=== PATIENT | female | born 1975 | race Caucasian/White ===

== ENCOUNTER 2020-08-20 15:46 | Emergency (ER) | payer OTHER, SELFPAY ==
[2020-08-20 18:20] VITALS: BP 152/98; PULSE 94; RESP 18; O2SAT 99; BMI 36.8
--- NOTE | 2020-08-20 18:26 | ED.URI ---
HPI - URI/Sore Throat General Chief Complaint: Upper Respiratory Symptoms Stated Complaint: Covid symptoms Time Seen by Provider: 08/20/20 16:55 Source: patient Mode of arrival: ambulatory Limitations: no limitations History of Present Illness HPI Narrative: Runny nose/congestion/body aches for the past 1 day. States her nephew was staying with her who got tested today and tested positive for COVID-19. She is here for COVID-19 testing. Denies any chest pain or shortness of breath. MD elicited complaint: rhinorrhea and nasal congestion Severity: mild Able to tolerate fluids by mouth: Yes Associated symptoms: denies other symptoms Treatments prior to arrival: none Related Data Allergies Allergy/AdvReac Type Severity Reaction Status Date / Time ibuprofen [IBUPROFEN] Allergy Intermediate STOMACH Unverified 05/03/20 15:25 BURNING meperidine [Demerol] Allergy Unknown Verified 12/27/12 00:00 From Demerol Allergy Severe HEART Uncoded 05/03/20 15:25 PALPITATIONS, BODY NUMBNESS Review of Systems Review of Systems: Constitutional: No Weight loss, No Fever, No Chills, No Night Sweats, No Fatigue, No Malaise ENT/Mouth: No Hearing loss, No Ear Pain, No Nasal Congestion, No Sinus Pain, No Hoarseness, No sore throat, No Rhinorrhea, No Swallowing Difficulty Eyes: No Eye Pain, No Swelling, No Redness, No Foreign Body, No Discharge, No Vision Changes Cardiovascular: No Chest Pain, No SOB, No Dyspnea on Exertion, No Orthopnea, No Edema, No Palpitations Respiratory: No Cough, No Sputum, No Wheezing, No Smoke Exposure, No Dyspnea Gastrointestinal: No Nausea, No Vomiting, No Diarrhea, No Constipation, No abdominal Pain, No Hematochezia, No Melena Genitourinary: No Dysuria, No Urinary Frequency, No Hematuria, No Urinary Incontinence, No Urgency, No Flank Pain Musculoskeletal: No joint pain, No Myalgias, No Joint Swelling Skin: No Skin Lesions, No rash Neuro: No Weakness, No Numbness, No Paresthesias, No Loss of Consciousness, No Dizziness, No Headache Psych: No Social Issues Heme/Lymph: No Bruising, No Bleeding,No Lymphadenopathy Endocrine: No Polyuria, No Polydipsia, No Temperature Intolerance Yes all other systems are reviewed and are negative [facility] Past Medical History Medical History (Updated 08/20/20 @ 18:28 by Matt Jiménez NP) Anxiety Asthma GERD (gastroesophageal reflux disease) Hypertension Surgical History (Updated 08/20/20 @ 18:23 by Juan Carlos Pelaez) Gastric bypass status for obesity History of hysterectomy Physical Exam Vital Signs: Vital Signs: Last Vital Signs Pulse 94 08/20/20 18:20 Resp 18 08/20/20 18:20 BP 152/98 H 08/20/20 18:20 Pulse Ox 99 08/20/20 18:20 Body Mass Index 36.8 Reviewed Const: General: cooperative and healthy appearing; No acute distress or intoxicated appearing Nutritional Appearance: average body habitus Orientation/consciousness: patient oriented x3 HENMT: Head: Yes normal to inspection Ears: hearing grossly normal bilaterally Eyes: General: appearance normal, both eyes and all related structures Visual Hickman: normal visual hickman by confrontation Neck: Neck: Yes normal visual inspection, No positive Brudzinski's sign, No positive Kernig's sign and No tender Thyroid: Thyroid normal Chest: Chest palpation & inspection: normal inspection of the chest Resp: Effort & Inspection: normal respiratory effort Auscultation: clear to auscultation bilaterally Cardio: Jugular venous distension: no JVD Rhythm: regular rhythm Heart sounds: S1 normal heart sound present and S2 normal heart sound present GI: Inspection: Yes normal to inspection Percussion: Yes normal to percussion Auscultation: normal bowel sounds : General: Yes no CVA tenderness Back/Spine/Pelvis: Back: no CVA tenderness Skin: General skin exam: no rashes or lesions noted Neuro: General: patient oriented x3 Extrem: General: Yes normal to inspection Course Course Course Narrative: Well nontoxic appearing. 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 Given your exposure we have done a COVID-19 test. Based on your symptoms and history we have sent a COVID-19. Although your RESULT IS PENDING at this time. RESULTS should return within 72 hours. At this time you will be contacted with either NEGATIVE OR POSITIVE results. -Please wait until we contact you for your results. At this time you will be okay for discharge. Please plan for self quarantine for up to 14 days. Do not expose yourself to others. Please continue to follow cold instructions and wash your hands frequently. You may take Tylenol as directed on the bottle for pain or fever. Patient seen in the emergency department and should be excused from work until negative test results AND until 72 hours without any symptoms AND at least 10 days have passed since symptoms first appeared or since last exposure to COVID-19 positive patient CDC Guidelines for home isolation: - Stay away from others - WEAR A MASK if you are sick AND STAY HOME - Cover your mouth and nose with a tissue when you cough or sneeze. Dispose of tissues in a lined trash can and wash your hands immediately with soap and water for at least 20 seconds. If soap and water are not available, clean hands with alcohol-based hand net mvc developer that contains at least 60% alcohol. - Clean your hands often with soap and water for at least 20 seconds - Avoid touching your eyes, nose and mouth with unwashed hands - Do not share dishes, drinking glasses, cups, eating utensils, towels, or bedding with other people in your home. After using these items, wash them thoroughly with soap and water or put in the public safety director. - Clean high-touch surfaces in your isolation area ( sick room and bathroom) every day; let a caregiver clean and disinfect high-touch surfaces in other areas of the home. Clean the area or item with soap and water or another detergent if it is dirty. Then, use a household disinfectant. - Limit contact with pets and animals: If you must care for a pet, wash your hands before and after interacting with them Referrals: Physician,Unknown [Primary Care Provider] - 2 weeks
[2020-08-20 19:45] LABS: COVID-19 Test Positive (Negative)
== END 2020-08-20 18:57 | disposition home or self-care (01) ==
LOC: HO.ED 18:58
PROVIDERS: Emergency Provider Emergency Medicine
DX: U07.1 COVID-19 (principal); I10 Essential (primary) hypertension; J45.909 Unspecified asthma, uncomplicated
CPT/HCPCS: 36415; 87635; 99283

== ENCOUNTER 2020-11-26 11:00 | Outpatient (REF) | payer OTHER, SELFPAY | END 2020-11-26 11:01 | disposition home or self-care (01) | LOC: HO.LAB 11:00 | PROVIDERS: Visit Provider Internal Medicine | DX: Z20.822 Contact with and (suspected) exposure to COVID-19 (principal) | CPT/HCPCS: C9803; U0003; U0005 ==

== ENCOUNTER 2021-04-16 17:08 | Emergency (ER) | payer OTHER, SELFPAY ==
[2021-04-16] VITALS (7 sets, daily range): BP systolic 97–144; BP diastolic 66–85; PULSE 72–100; RESP 15–16; TEMP 36.4–36.6; O2SAT 95–100; BMI 33.3
--- NOTE | 2021-04-16 18:50 | ED.NAVMDI ---
HPI - Nausea/Vomiting/Diarrhea General Chief complaint: Nausea/Vomiting/Diarrhea Stated complaint: Food poisoning Time Seen by Provider: 04/16/21 18:49 Source: patient Mode of arrival: ambulatory Limitations: no limitations History of Present Illness HPI Narrative: Patient just visited [place] was in [place] for few days for last 5 days complaining of nausea diarrhea few vomitings vomiting getting better but still having diarrhea Related Data Previous Rx's Medication Instructions Recorded ciprofloxacin HCl 500 mg tablet 500 mg PO BID #14 tab 04/16/21 (Cipro) metronidazole 500 mg tablet 500 mg PO TID #20 tab 04/16/21 (Flagyl) ondansetron 4 mg disintegrating 4 mg PO Q6-8H PRN #5 tab 04/16/21 tablet Allergies Allergy/AdvReac Type Severity Reaction Status Date / Time ibuprofen [IBUPROFEN] Allergy Intermediate STOMACH Unverified 05/03/20 15:25 BURNING meperidine [Demerol] Allergy Unknown Verified 12/27/12 00:00 From Demerol Allergy Severe HEART Uncoded 05/03/20 15:25 PALPITATIONS, BODY NUMBNESS PMFSH Past Medical History Medical History (Updated 04/17/21 @ 00:02 by Ed Bonner) Anxiety Asthma GERD (gastroesophageal reflux disease) Hypertension Surgical History (Updated 08/20/20 @ 18:23 by Juan Carlos Pelaez) Gastric bypass status for obesity History of hysterectomy Social History Social History Advance Directives: No Physical Exam Vital Signs: Vital Signs: Last Vital Signs Temp 97.6 F 04/16/21 20:21 Pulse 73 04/16/21 21:56 Resp 16 04/16/21 21:56 BP 107/70 04/16/21 21:56 Pulse Ox 98 04/16/21 21:56 Body Mass Index 33.3 MDM - Nausea/Vomiting/Diarrhea Lab Data Result diagrams: 04/16/21 19:56 04/16/21 19:56 Labs: Lab Results 04/16/21 04/16/21 Range/Units 19:56 19:56 WBC 6.8 (4.8-10.8) X10*3/uL RBC 4.25 (4.20-5.50) X10*6/uL Hgb 12.7 (12.0-16.0) g/dl Hct 36.6 L (37-47) % MCV 86.1 (80-98) fL MCH 29.9 (27.0-33.0) pg MCHC 34.7 (31.0-35.0) g/dl RDW 11.9 (11.0-16.0) % Plt Count 251 (160-400) X10*3/uL MPV 10.2 (9.4-12.3) fL Immature Gran % (Auto) 0.3 (0.0-0.4) % Neut % (Auto) 50.3 (45-73) % Lymph % (Auto) 38.5 (20-40) % Hamilton % (Auto) 8.7 (2-11) % Eos % (Auto) 1.6 (0-4) % Baso % (Auto) 0.6 (0-2) % Lymph # (Auto) 2.6 (1.2-4.9) X10*3/uL Hamilton # (Auto) 0.6 (0.1-1.2) X10*3/uL Eos # (Auto) 0.1 (0.0-0.4) X10*3/uL Baso # (Auto) 0.0 (0.0-0.2) X10*3/uL Abs Immat Gran (auto) 0.02 (0.00-0.03) X10*3/uL Absolute Neuts (auto) 3.4 (2.0-8.3) X10*3/uL Absolute Nucleated RBC 0.000 (0.0-0.012) X10*3/uL Nucleated RBC % (auto) 0.0 (0.0-0.2) /100WBC Smear Tech's Comments VERIFIED Sodium 140 (135-145) mmol/L Potassium 3.5 (3.3-5.1) mmol/L Chloride 104 (96-108) mmol/L Carbon Dioxide 27 (22-29) mmol/L Anion Gap 13 (12-20) BUN 9 (9-16) mg/dL Creatinine 0.66 (0.5-1.4) mg/dL Estim Creat Clear Calc 135.7 Estimated GFR > 60 Random Glucose 78 (60-115) mg/dL Calcium 9.1 (8.4-10.2) mg/dL Discharge Plan Discharge Clinical Impression: Food poisoning Patient Disposition: Home, Self-Care Instructions: Acute Diarrhea (ED), Food Poisoning (ED) Additional Instructions: Drink plenty of fluid take antibiotic as advised follow-up PCP if not better Prescriptions: New ciprofloxacin HCl [Cipro] 500 mg tablet 500 mg PO BID Qty: 14 RF: 0 metronidazole [Flagyl] 500 mg tablet 500 mg PO TID Qty: 20 RF: 0 ondansetron 4 mg tablet,disintegrating 4 mg PO Q6-8H PRN (Reason: nausea and vomiting) Qty: 5 RF: 0 Interventions: ED Discharge Assessment Last Done: 04/16/21 21:39 Discharge Date/Time: 04/16/21 21:56
--- NOTE | 2021-04-16 19:28 | PC.NURSE ---
pt is a difficult stick. pt has been sick since thrusday
[2021-04-16] MEDS: 0.9 % Sodium Chloride 1,000 ML 999 ML IVCONT (19:58)
[2021-04-16 20:19] LABS: Basophils Percent Auto 0.6 % (0-2); Eosinophils Absolute Auto 0.1 X10*3/uL (0.0-0.4); Eosinophils Percent Auto 1.6 % (0-4); Hematocrit 36.6 % (37-47); Hemoglobin 12.7 g/dl (12.0-16.0); Imm Gran Abs Auto 0.02 X10*3/uL (0.00-0.03); Imm Gran Pct Auto 0.3 % (0.0-0.4); Lymphocytes Absolute Auto 2.6 X10*3/uL (1.2-4.9); Lymphocytes Percent Auto 38.5 % (20-40); MANUAL DIFF FLAG SCAN; Mean Corpuscular HGB Conc 34.7 g/dl (31.0-35.0); Mean Corpuscular Hemoglobin 29.9 pg (27.0-33.0); Mean Corpuscular Volume 86.1 fL (80-98); Mean Platelet Volume 10.2 fL (9.4-12.3); Monocytes Absolute Auto 0.6 X10*3/uL (0.1-1.2); Monocytes Percent Auto 8.7 % (2-11); Neutrophils Absolute Auto 3.4 X10*3/uL (2.0-8.3); Neutrophils Percent Auto 50.3 % (45-73); Platelet Count 251 X10*3/uL (160-400); Red Blood Count 4.25 X10*6/uL (4.20-5.50); Red Cell Distribution Width 11.9 % (11.0-16.0); SCAN SMEAR FLAG 1; White Blood Count 6.8 X10*3/uL (4.8-10.8)
[2021-04-16 20:23] LABS: Anion Gap 13 (12-20); Blood Urea Nitrogen 9 mg/dL (9-16); Calcium 9.1 mg/dL (8.4-10.2); Carbon Dioxide 27 mmol/L (22-29); Chloride 104 mmol/L (96-108); Creatinine Clr Calc Pharmacy 135.7; Estimated Glomerular Filt Rate > 60; Glucose Random 78 mg/dL (60-115); Potassium 3.5 mmol/L (3.3-5.1); SLIDE REVIEW VERIFIED; Sodium 140 mmol/L (135-145)
[2021-04-16] MEDS: ondansetron HCL 4 MG/2 ML VIAL IVPUSH (21:08)
[2021-04-16] MEDS: levoFLOXacin 500 MG TABLET PO (21:08)
[2021-04-16] MEDS: Morphine Sulfate 4 MG/ML CARTRIDGE IVPUSH (21:08)
[2021-04-16] MEDS: metroNIDAZOLE 500 MG TABLET PO (21:08)
== END 2021-04-16 21:56 | disposition home or self-care (01) ==
PROVIDERS: Emergency Provider Internal Medicine; PCP Internal Medicine
DX: A05.9 Bacterial foodborne intoxication, unspecified (principal); R19.7 Diarrhea, unspecified; I10 Essential (primary) hypertension; Z98.84 Bariatric surgery status
CPT/HCPCS: 36415; 80048; 85025; 96361; 96374; 96375; 99284; J2270; J2405

== ENCOUNTER 2021-04-24 10:12 | Outpatient (REF) | payer OTHER, SELFPAY | END 2021-04-24 10:13 | disposition home or self-care (01) | LOC: HO.LAB 10:12 | PROVIDERS: PCP Internal Medicine; Visit Provider Internal Medicine | DX: Z20.822 Contact with and (suspected) exposure to COVID-19 (principal) | CPT/HCPCS: C9803; U0003; U0005 ==

== ENCOUNTER 2021-05-16 18:55 | Emergency (ER) | payer OTHER, SELFPAY ==
--- NOTE | ~2021-05-16 | XR_ITS ---
EXAMINATION: XR CHEST CLINICAL INFORMATION: Cough COMPARISON: Chest x-ray 03/14/2020 TECHNIQUE: 2 views of the chest were obtained. FINDINGS: Lungs are clear. Opacity in the medial left lung apex corresponds to osteophytosis at the left first costosternal junction. No focal consolidation or mass. Normal pulmonary vascularity. No pleural effusion or pneumothorax. Normal heart size. Mild degenerative changes of the thoracic spine. XR/XR chest 2V IMPRESSION: No acute pulmonary disease.
[2021-05-16 19:18] VITALS: PULSE 98; RESP 18; TEMP 37.1; O2SAT 99; BMI 36.4
[2021-05-16 19:44] LABS: COVID-19 Test Negative (Negative)
--- NOTE | 2021-05-16 21:03 | ED.GENADULT ---
HPI - General Adult General Chief complaint: Upper Respiratory Symptoms Stated complaint: FLU POLOS SON COVID + Time Seen by Provider: 05/16/21 21:03 Source: patient Mode of arrival: ambulatory Limitations: no limitations History of Present Illness HPI narrative: 45 years old female is here today for complaining of upper respiratory symptoms. Patient also reports of headache, earache, or sore throat. Denies any swallowing difficulties no SOB with or without exertion, no syncope or presyncope. Denies any chest pain or pressure. Patient had COVID-19 vaccine. Patient was told that her son and her daughter in a boat tested positive for COVID-19. Onset (ago): day(s) Location: head Radiation: non-radiation Severity: mild Related Data Previous Rx's Medication Instructions Recorded ciprofloxacin HCl 500 mg tablet 500 mg PO BID #14 tab 04/16/21 (Cipro) metronidazole 500 mg tablet 500 mg PO TID #20 tab 04/16/21 (Flagyl) ondansetron 4 mg disintegrating 4 mg PO Q6-8H PRN #5 tab 04/16/21 tablet benzonatate 100 mg capsule 100 mg PO TID PRN #30 cap 05/16/21 (Tessalon Perles) fluticasone propionate 50 1 spray INTRANASAL BID #16 g 05/16/21 mcg/actuation nasal spray,suspension (Flonase Allergy Relief) loratadine 10 mg tablet (Claritin) 10 mg PO DAILY PRN #10 tab 05/16/21 Allergies Allergy/AdvReac Type Severity Reaction Status Date / Time ibuprofen [IBUPROFEN] Allergy Intermediate STOMACH Unverified 05/03/20 15:25 BURNING meperidine [Demerol] Allergy Unknown Verified 12/27/12 00:00 From Demerol Allergy Severe HEART Uncoded 05/03/20 15:25 PALPITATIONS, BODY NUMBNESS Review of Systems Review of Systems: Constitutional : No Weight loss, No Fever, No Chills, No Night Sweats, No Fatigue, No Malaise ENT/Mouth : No Hearing loss, No Ear Pain, No Nasal Congestion, No Sinus Pain, No Hoarseness, No sore throat, No Rhinorrhea, No Swallowing Difficulty Eyes: No Eye Pain, No Swelling, No Redness, No Foreign Body, No Discharge, No Vision Changes Cardiovascular : No Chest Pain, No SOB, No Dyspnea on Exertion, No Orthopnea, No Edema, No Palpitations Respiratory : Cough, No Sputum, No Wheezing, No Smoke Exposure, No Dyspnea Gastrointestinal : No Nausea, No Vomiting, No Diarrhea, No Constipation, No abdominal Pain, No Hematochezia, No Melena Genitourinary : no irregular bleeding, No Dysuria, No Urinary Frequency, No Hematuria, No Urinary Incontinence, No Urgency, No Flank Pain, No Urinary Flow Changes, No Hesitancy Musculoskeletal : No joint pain, No Myalgias, No Joint Swelling Skin : No Skin Lesions, No rash Yes all other systems are reviewed and are negative PMFSH Past Medical History Medical History (Updated 05/16/21 @ 21:38 by Yasmin Evans, [facility] [place]) Anxiety Asthma GERD (gastroesophageal reflux disease) Hypertension Surgical History Gastric bypass status for obesity History of hysterectomy Social History Social History Advance Directives: Yes Advance Directives Information Provided: Yes Advance Directives on File: No Patient : No Physical Exam Vital Signs: Vital Signs: Last Vital Signs Temp 98.7 F 05/16/21 19:18 Pulse 98 05/16/21 19:18 Resp 18 05/16/21 19:18 Pulse Ox 99 05/16/21 19:18 Body Mass Index 36.4 Const: General: healthy appearing, no acute distress and well developed Nutritional Appearance: well nourished Orientation/consciousness: patient oriented x3 HENMT: Head: Yes normal to inspection, Yes normocephalic and Yes atraumatic Neck: Neck: Yes normal visual inspection, Yes full ROM and Yes trachea midline Thyroid: Thyroid normal Resp: Effort & Inspection: normal respiratory effort, able to speak in complete sentences and abnormal respiratory pattern Auscultation: clear to auscultation bilaterally Cardio: Rate: regular rate Rhythm: regular rhythm GI: Inspection: Yes normal to inspection and No distended Palpation (GI): Soft to palpation, nontender, no guarding and No hepatosplenomegaly present Auscultation: normal bowel sounds : General: Yes no CVA tenderness Back/Spine/Pelvis: Back: no CVA tenderness Skin: General skin exam: elasticity normal, turgor normal, dry skin and other (Bruising to right lower leg) Neuro: General: patient oriented x3 Course Course Course Narrative: 45 years old female is here today for complaints of cold symptoms in the last few days. Patient reports that she did had a COVID 19 vaccine. Patient reports that 2 of her family members her [id number] and her son were testing positive for COVID in the last couple days. Patient reports to have rhinitis, mild cough, denies any shortness of breath or chest pain. Reports some mild body ache, sore throat headache and earache. Patient denies any CP, PND, SOB with or without exertion. Denies any respiratory distress or any wheezes. Patient does not have a history of asthma. Reevaluation(s) Reevaluation #1: Chest x-ray negative for any acute findings. Patient will be sent with Tessalon Perles, Flonase and Zyrtec. Patient was encouraged to increase fluids and rest. Most likely this is viral COVID-19 negative. Medical Decision Making Lab Data Labs: Lab Results 05/16/21 Range/Units 19:21 COVID-19 ([facility]OME) Negative (Negative) COVID-19 Clin Com See Note Imaging Data Chest x-ray: Attestation: I personally reviewed and interpreted this imaging study as follows: Radiologist's impression: FINDINGS: Lungs are clear. Opacity in the medial left lung apex corresponds to osteophytosis at the left first costosternal junction. No focal consolidation or mass. Normal pulmonary vascularity. No pleural effusion or pneumothorax.? Normal heart size. Mild degenerative changes of the thoracic spine. Discharge Plan Discharge Clinical Impression: Viral infection Patient Disposition: Home, Self-Care Instructions: Viral Syndrome (ED) Additional Instructions: You were seen here today for upper respiratory symptoms. You COVID-19 test was negative. You were given medication to decrease cough. You will be sent home with Flonase, Zyrtec and medication to help you with you cough. Your x-ray was negative for any acute process. Please follow up with your primary care doctor in 2-3 days. You may return to emergency department if her symptoms will get worse or if your experience any additional concerning symptoms Prescriptions: New benzonatate [Tessalon Perles] 100 mg capsule 100 mg PO TID PRN (Reason: cough) Qty: 30 RF: 0 fluticasone propionate [Flonase Allergy Relief] 50 mcg/actuation spray,suspension 1 spray intranasal BID Qty: 16 RF: 0 loratadine [Claritin] 10 mg tablet 10 mg PO DAILY PRN (Reason: allergy symptoms) Qty: 10 RF: 0 No Action ciprofloxacin HCl [Cipro] 500 mg tablet 500 mg PO BID Qty: 14 RF: 0 metronidazole [Flagyl] 500 mg tablet 500 mg PO TID Qty: 20 RF: 0 ondansetron 4 mg tablet,disintegrating 4 mg PO Q6-8H PRN (Reason: nausea and vomiting) Qty: 5 RF: 0 Referrals: Eugenio Bishop MD [Primary Care Provider] - 2 days
[2021-05-16] MEDS: Benzonatate 100 MG CAPSULE PO (21:27)
== END 2021-05-16 21:43 | disposition home or self-care (01) ==
PROVIDERS: Emergency Provider Internal Medicine; PCP Internal Medicine
DX: B34.9 Viral infection, unspecified (principal); R51.9 Headache, unspecified; Z20.822 Contact with and (suspected) exposure to COVID-19
CPT/HCPCS: 36415; 71046; 87635; 99283

== ENCOUNTER 2021-08-17 12:18 | Outpatient (REF) | payer OTHER, SELFPAY ==
[2021-08-17 12:53] LABS: Binax Internal Control QC Valid; Binax Lot number: 9864; Binax Now Covid-19 Ag Negative (Negative)
== END 2021-08-17 12:19 | disposition home or self-care (01) ==
LOC: HO.LAB 12:18
PROVIDERS: Visit Provider Internal Medicine
DX: Z20.822 Contact with and (suspected) exposure to COVID-19 (principal)
CPT/HCPCS: 36415; C9803

== ENCOUNTER 2021-11-08 10:24 | Outpatient (REF) | payer OTHER, SELFPAY ==
--- NOTE | ~2021-11-08 | MM_ITS ---
EXAMINATION: MM SCREENING DIGITAL BREAST TOMOSYNTHESIS, BILATERAL CLINICAL INFORMATION: Screening. Asymptomatic. Family history breast cancer, mother. The lifetime risk of breast cancer based on the Tyrer-Cuzick Model is 8%. COMPARISON: Mammography: 02/21/2020, 02/15/2020, 11/29/2018, 11/09/2017 TECHNIQUE: Digital breast tomosynthesis is performed in both the craniocaudal and mediolateral oblique views along with computer-aided detection (CAD). Synthesized 2D images are generated from the tomosynthesis. Additional exaggerated right CC view is provided. FINDINGS: The breasts are heterogeneously dense, which may obscure small masses (ACR BI-RADS breast composition Category c). There are no significant masses, abnormal calcifications, or other abnormalities. Parenchymal pattern is similar to prior studies. There is no developing density or architectural abnormality. The axilla and skin contours are unremarkable. No significant changes. MM/MM tomosynthesis screening BI IMPRESSION: No mammographic evidence of malignancy. ASSESSMENT: BI-RADS 1: Negative RECOMMENDATION: Routine annual mammography screening. This patient's information was entered into a reminder system with a target due date for their next mammogram.
== END 2021-11-08 10:25 | disposition home or self-care (01) ==
LOC: HO.MAMMO 10:24
PROVIDERS: Visit Provider Internal Medicine
DX: Z12.31 Encounter for screening mammogram for malignant neoplasm of breast (principal)
CPT/HCPCS: 77063; 77067

== ENCOUNTER 2022-11-10 09:48 | Outpatient (REF) | payer OTHER, SELFPAY ==
--- NOTE | ~2022-11-10 | MM_ITS ---
EXAMINATION: MM SCREENING DIGITAL BREAST TOMOSYNTHESIS, BILATERAL CLINICAL INFORMATION: Screening. Asymptomatic. Family history breast cancer, mother, maternal grandmother. The lifetime risk of breast cancer based on the Tyrer-Cuzick Model is 17%. COMPARISON: Mammography: 11/08/2021, 02/21/2020, 02/15/2020, 11/29/2018 TECHNIQUE: Digital breast tomosynthesis is performed in both the craniocaudal and mediolateral oblique views along with computer-aided detection (CAD). Synthesized 2D images are generated from the tomosynthesis. FINDINGS: The breasts are heterogeneously dense, which may obscure small masses (ACR BI-RADS breast composition Category c). There are no significant masses, abnormal calcifications, or other abnormalities. No architectural abnormality. The axilla and skin contours are unremarkable. No significant changes from prior studies. MM/MM tomosynthesis screening BI IMPRESSION: No mammographic evidence of malignancy. ASSESSMENT: BI-RADS 1: Negative RECOMMENDATION: Routine annual mammography screening. This patient's information was entered into a reminder system with a target due date for their next mammogram.
== END 2022-11-10 09:49 | disposition home or self-care (01) ==
LOC: HO.MAMMO 09:48
PROVIDERS: Visit Provider Internal Medicine
DX: Z12.31 Encounter for screening mammogram for malignant neoplasm of breast (principal)
CPT/HCPCS: 77063; 77067

== ENCOUNTER 2023-02-10 15:40 | Emergency (ER) | payer OTHER, SELFPAY ==
--- NOTE | 2023-02-10 15:44 | ED_ITS ---
HPI - General Adult General Chief complaint: Extremity Injury, Upper Stated complaint: ?Pinky infection Time Seen by Provider: 02/10/23 17:36 Source: patient and RN notes reviewed Mode of arrival: ambulatory Limitations: no limitations History of Present Illness HPI narrative: This is a 47-year-old female presenting to the emergency department for evaluation of right 5th finger redness and swelling x9 days. Patient reports she recently had her nails done and reports that her left fifth finger was lacerated during the manicure. Patient reports that she went on a cruise and noticed increasing swelling pain to the right 5th finger. Patient denies any fevers or chills. Denies any other complaints or concerns at this time MD complaint: Left 5th finger swelling Quality: aching Pain Consistency: constant Relieving factors: none Exacerbating factors: none Associated symptoms: denies other symptoms Treatments prior to arrival: none Related Data Previous Rx's Medication Instructions Recorded ciprofloxacin HCl 500 mg tablet 500 mg PO BID #14 tabs 04/16/21 (Cipro) metronidazole 500 mg tablet 500 mg PO TID #20 tabs 04/16/21 (Flagyl) ondansetron 4 mg disintegrating 4 mg PO Q6-8H PRN nausea and 04/16/21 tablet vomiting #5 tabs benzonatate 100 mg capsule 100 mg PO TID PRN cough #30 caps 05/16/21 (Tessalon Perles) fluticasone propionate 50 1 spray intranasal BID #16 grams 05/16/21 mcg/actuation nasal spray,suspension (Flonase Allergy Relief) loratadine 10 mg tablet (Claritin) 10 mg PO DAILY PRN allergy 05/16/21 symptoms #10 tabs amoxicillin 875 mg-potassium 1 tab PO BID 7 days #14 tabs 02/10/23 clavulanate 125 mg tablet Allergies Allergy/AdvReac Type Severity Reaction Status Date / Time ibuprofen [IBUPROFEN] Allergy Intermediate STOMACH Verified 02/10/23 15:45 BURNING meperidine [Demerol] Allergy Unknown Palpitation Verified 02/10/23 15:45 s From Demerol Allergy Severe HEART Uncoded 05/03/20 15:25 PALPITATIONS, BODY NUMBNESS Review of Systems Review of Systems: Constitutional: No Weight loss, No Fever, No Chills ENT/Mouth: No Ear Pain, No Nasal Congestion, No Sinus Pain, No Hoarseness, No sore throat, No Rhinorrhea, No Swallowing Difficulty Cardiovascular: No Chest Pain, No SOB Respiratory: No Cough, No Sputum, No Wheezing Gastrointestinal: No Nausea, No Vomiting, No Diarrhea, No Constipation, No Abdominal pain Genitourinary: No Dysuria, No Urinary Frequency, No Hematuria, No Urinary Incontinence/retention, No Urgency, No Flank Pain Musculoskeletal: No joint pain, No Myalgias, No Joint Swelling Skin: No Skin Lesions, No rash Neuro: No Weakness, No Numbness, No Paresthesias [facility] Past Medical History Medical History (Updated 02/10/23 @ 18:24 by MAX Nava) Anxiety Asthma GERD (gastroesophageal reflux disease) Hypertension Surgical History Gastric bypass status for obesity History of hysterectomy Social History Social History Alcohol intake: never Smoked in Last 30 Days: No Use of substances other than those prescribed or required for medical reasons: No Advance Directives: No Advance Directives Information Provided: No Physical Exam ED Vital Signs: Vital Signs - 24 hr 02/10/23 15:45 Temperature 97.6 F Pulse Rate 101 H Respiratory Rate 18 Blood Pressure 165/93 H Pulse Oximetry 96 Oxygen Delivery Method Room Air BMI result Body Mass Index 39.0 Const Other: General: Awake, alert, and oriented X3. No acute distress. HEENT: Normal inspection CVS: Normal heart rate and rhythm. Pulses normal. Respiratory: No respiratory distress Skin: Warm, dry, no rashes noted to exposed skin. Normal skin color. Normal skin turgor. Extremities: Left fifth finger DIP, erythematous, edematous and fluctuance. TTP. Able to flex and extend at DIP/PIP. Full range of motion of all digits. No surrounding erythema or streaking. Neuro: Oriented X 3. No motor deficit. No sensory deficit. Course Course Course Narrative: This is an RME: Additional HPI, ROS, PE not included below will be deferred to primary provider. Patient is a 47-year-old right hand dominant female with history of presenting to the emergency department with pain and swelling to 5th finger of right hand since Thursday, 02/01. Had nails done on Thursday and symptoms began Thursday, then was on a cruise and symptoms worsened. Denies fevers. Significant swelling and erythema to distal tip of right 5th finger. Medications Administered Discontinued Medications Generic Name Dose Route Start Last Admin Trade Name Berkley PRN Reason Stop Dose Admin Amoxicillin/Clavulanate Potassium 875 mg 02/10/23 18:26 02/10/23 18:44 Amoxicillin/Potassium Clav 875 Mg Tablet PO 02/10/23 18:27 875 mg ONCE ONE Administration Diphtheria/Tetanus/Acell Pertussis 0.5 ml 02/10/23 18:26 02/10/23 18:44 Diphth,Pertus(Acell),Tet Adult 0.5 Ml Syringe IM 02/10/23 18:27 0.5 ml .ONCE ONE Administration Lidocaine HCl 5 ml 02/10/23 17:57 02/10/23 18:01 Lidocaine Hcl 1 % Mpf 5 Ml Vial INFILTRATI 02/10/23 17:58 5 ml ONCE ONE Administration Procedures Abscess I/D Site: other (Finger) Side (if applicable): right (5th) Local Anesthetic: lidocaine 1% Amount of anesthesia used (mL): 4 Technique: incised with blade Amount of fluid expressed (mL): 5 Sent for culture/gram staining?: No Irrigation: No Packing used?: none Complications: pain Medical Decision Making Medical Decision Making MDM Narrative: 47-year-old female presenting to the emergency department with left 5th finger paronychia. Digital block performed using 1% lidocaine, a small incision made at the base nail bed, copious amount of yellow/green foul-smelling purulence drainage expressed. Patient tolerated procedure well. Wound dressed with bacitracin and not adherent. Tetanus updated in department. Patient discharged on antibiotics and giving good wound care instructions. Given return precautions. Patient understands agrees with plan. Differential Diagnosis Differential Diagnoses: The differential diagnosis associated with the presentation includes Paronychia, cellulitis, septic joint - unlikely, hematoma, contusion Prescription Management I considered prescription management with: Antibiotic Discharge Plan Discharge Clinical Impression: Paronychia of great toe, right Patient Disposition: Home, Self-Care Instructions: Paronychia (ED) Additional Instructions: Please take prescribed antibiotic as directed. Finish the entire course. Perform warm soaks, 4 to 5 times a day. Keep a close eye on the finger. Any new or worsening symptoms occur including but not limited to fevers, chills, decreased range of motion of her finger increased pain, please return for re-evaluation. Prescriptions: New amoxicillin-pot clavulanate 875-125 mg tablet 1 tab PO BID 7 Days Qty: 14 0RF No Action ciprofloxacin HCl [Cipro] 500 mg tablet 500 mg PO BID Qty: 14 0RF metronidazole [Flagyl] 500 mg tablet 500 mg PO TID Qty: 20 0RF ondansetron 4 mg tablet,disintegrating 4 mg PO Q6-8H PRN (Reason: nausea and vomiting) Qty: 5 0RF benzonatate [Tessalon Perles] 100 mg capsule 100 mg PO TID PRN (Reason: cough) Qty: 30 0RF fluticasone propionate [Flonase Allergy Relief] 50 mcg/actuation spray,suspension 1 spray intranasal BID Qty: 16 0RF Rx Instructions: administer into each nostril loratadine [Claritin] 10 mg tablet 10 mg PO DAILY PRN (Reason: allergy symptoms) Qty: 10 0RF Interventions: ED Discharge Assessment Last Done: 02/10/23 18:56 Discharge Date/Time: 02/10/23 18:56
[2023-02-10 15:45] VITALS: BP 165/93; PULSE 101; RESP 18; TEMP 36.4; O2SAT 96; BMI 39.0
[2023-02-10] MEDS: Lidocaine HCl 1 % MPF 5 ML VIAL INFILTRATI (18:01)
[2023-02-10] MEDS: Diphth,Pertus(ACell),Tet Adult 0.5 ML SYRINGE IM (18:44)
[2023-02-10] MEDS: Amoxicillin/Potassium Clav 875 MG TABLET PO (18:44)
--- NOTE | 2023-02-10 18:55 | PC.NURSE ---
pinky finger dressed with bacitracin, gauze and wrapped
== END 2023-02-10 18:56 | disposition home or self-care (01) ==
PROVIDERS: Emergency Provider Emergency Medicine; PCP Internal Medicine
DX: L03.031 Cellulitis of right toe (principal); S60.416A Abrasion of right little finger, initial encounter; Z79.899 Other long term (current) drug therapy; Z23 Encounter for immunization
CPT/HCPCS: 10060; 90471; 90715; 99283; 99284

== ENCOUNTER 2023-04-24 19:59 | Emergency (ER) | payer OTHER, SELFPAY ==
--- NOTE | ~2023-04-24 | CT_ITS ---
EXAMINATION: CT ABDOMEN AND PELVIS WITHOUT CONTRAST CLINICAL INFORMATION: Abdominal pain. COMPARISON: None available. TECHNIQUE: Multidetector volumetric imaging was performed from the superior aspect of the liver through the pubic symphysis. Sagittal and coronal reformatted images were obtained on the technologist's workstation. This CT examination was performed using dose optimization techniques as appropriate, variously including the following: *Automated exposure control *Adjustment of mA and/or kV according to patient size (this includes techniques or standardized protocols for targeted exams where dose is matched to indication/reason for exam; i.e. extremities or head) *Use of iterative reconstruction technique DLP: 884 mGy-cm FINDINGS: LUNG BASES: The visualized lung bases are unremarkable. LIVER, GALLBLADDER, AND BILIARY TREE: The liver is normal in size, shape, and attenuation. No focal hepatic lesion or biliary ductal dilatation is present. The gallbladder is unremarkable with no evidence of radiopaque gallstones, gallbladder wall thickening, or obvious pericholecystic inflammatory changes. PANCREAS: Partially fatty replaced. There appears to be minimal infiltrative change along the pancreatic head. SPLEEN: Unremarkable. ADRENAL GLANDS: Unremarkable. KIDNEYS AND URETERS: The kidneys are normal in size, shape, and attenuation. No hydronephrosis, hydroureter, or calculi seen. No perinephric stranding. BLADDER: Unremarkable. GASTROINTESTINAL TRACT: There are diverticula of the distal descending and sigmoid colon without diverticulitis. The appendix is visualized and is within normal limits. There has been a prior gastric sleeve procedure. ABDOMINAL WALL: No significant hernia is appreciated. LYMPH NODES: Normal. VASCULAR: Unremarkable. PELVIC VISCERA: 2.3 cm left adnexal cystic structure. OSSEOUS STRUCTURES: Unremarkable. CT/CT abdomen pelvis wo IV con IMPRESSION: Partial fatty infiltration of the pancreas. There is mild infiltrative change along the head of the pancreas which is a subtle finding but may be secondary to mild pancreatitis. Correlation with pancreatic enzymes needed. There are diverticula of the descending and the sigmoid colon without diverticulitis. Fleischner guidelines were followed.
[2023-04-24 20:02] VITALS: BP 141/90; PULSE 102; RESP 18; TEMP 36.7; O2SAT 100; BMI 33.0
--- NOTE | 2023-04-24 20:04 | ED_ITS ---
HPI - General Adult General Chief complaint: Abdominal Pain Stated complaint: abdominal pain Time Seen by Provider: 04/25/23 02:44 Source: patient Mode of arrival: ambulatory Limitations: no limitations History of Present Illness HPI narrative: Patient otherwise healthy been having upper abdominal pain nausea vomiting since yesterday vomited more than 5 times no diarrhea pain radiates to the back no history of ulcer or pancreatitis no alcohol use Related Data Previous Rx's Medication Instructions Recorded ciprofloxacin HCl 500 mg tablet 500 mg PO BID #14 tabs 04/16/21 (Cipro) metronidazole 500 mg tablet 500 mg PO TID #20 tabs 04/16/21 (Flagyl) ondansetron 4 mg disintegrating 4 mg PO Q6-8H PRN nausea and 04/16/21 tablet vomiting #5 tabs benzonatate 100 mg capsule 100 mg PO TID PRN cough #30 caps 05/16/21 (Tessalon Perles) fluticasone propionate 50 1 spray intranasal BID #16 grams 05/16/21 mcg/actuation nasal spray,suspension (Flonase Allergy Relief) loratadine 10 mg tablet (Claritin) 10 mg PO DAILY PRN allergy 05/16/21 symptoms #10 tabs amoxicillin 875 mg-potassium 1 tab PO BID 7 days #14 tabs 02/10/23 clavulanate 125 mg tablet ondansetron 4 mg disintegrating 4 mg PO Q6-8H PRN nausea and 04/25/23 tablet vomiting #10 tabs Allergies Allergy/AdvReac Type Severity Reaction Status Date / Time ibuprofen [IBUPROFEN] Allergy Intermediate STOMACH Verified 02/10/23 15:45 BURNING meperidine [Demerol] Allergy Unknown Palpitation Verified 02/10/23 15:45 s From Demerol Allergy Severe HEART Uncoded 05/03/20 15:25 PALPITATIONS, BODY NUMBNESS Review of Systems 2 Review of Systems: Yes all other systems are reviewed and are negative [facility] Past Medical History Medical History GERD (gastroesophageal reflux disease) Hypertension Anxiety Asthma Surgical History Gastric bypass status for obesity History of hysterectomy Social History Social History Alcohol intake: never Smoked in Last 30 Days: No Use of substances other than those prescribed or required for medical reasons: No Advance Directives: No Advance Directives Information Provided: No Patient : No Physical Exam ED Vital Signs: Vital Signs - 24 hr 04/24/23 20:02 04/24/23 22:13 04/25/23 02:15 Temperature 98.1 F 97.9 F 97.8 F Pulse Rate 102 H 85 82 Respiratory Rate 18 18 20 Blood Pressure 141/90 H 122/84 109/68 Pulse Oximetry 100 96 98 Oxygen Delivery Method Room Air Room Air Room Air 04/25/23 06:17 Temperature 97.9 F Pulse Rate 74 Respiratory Rate 16 Blood Pressure 112/71 Pulse Oximetry 98 Oxygen Delivery Method Room Air BMI result Body Mass Index 33.0 Appearance: Alert. Oriented X3. No acute distress. Eyes: PERRLA, No Nystagmus ENT: Pharynx normal. Oral Mucosa moist Neck: Normal inspection. Neck supple. CVS: Normal heart rate and rhythm. Pulses normal. Respiratory: No respiratory distress. Equal air entry bilateral, no wheezing/rales/rhonchi Abdomen: Soft tenderness epigastric area no rebound tenderness/ guarding Bowel sounds are present, no mass palpable, no CVA tenderness Skin: Skin warm and dry. Normal skin color. Normal skin turgor. Neuro: Oriented X 3. Course Course Course Narrative: RME- 47 year old female presents for evaluation of abdominal pain. Plan for labs, UA, . Will defer advanced imaging to primary provider pending labs Medications Administered Discontinued Medications Generic Name Dose Route Start Last Admin Trade Name Williamq PRN Reason Stop Dose Admin Famotidine 20 mg 04/25/23 03:25 04/25/23 04:27 Famotidine/Pf 20 Mg/2 Ml Vial IVPUSH 04/25/23 03:26 20 mg ONCE ONE Administration Sodium Chloride 1,000 mls @ 999 mls/hr 04/25/23 03:25 04/25/23 04:28 Ns IV 04/25/23 04:25 999 mls/hr .Q1H1M ONE Administration Morphine Sulfate 4 mg 04/25/23 03:26 04/25/23 04:27 Morphine Sulfate 4 Mg/Ml Cartridge IVPUSH 04/25/23 03:27 4 mg ONCE ONE Administration Protocol Ondansetron HCl 4 mg 04/25/23 03:25 04/25/23 04:28 Ondansetron Hcl 4 Mg/2 Ml Vial IVPUSH 04/25/23 03:26 4 mg ONCE ONE Administration Medical Decision Making Medical Decision Making [facility] Narrative: Patient with acute vomiting the upper abdominal pain lipase negative CT scan showed mild infiltration pancreas area patient feeling much better now taking p.o. fluids initial admission likely patient has viral gastroenteritis Differential Diagnosis Differential Diagnoses: The differential diagnosis associated with the presentation includes Pancreatitis/cholecystitis/gastroenteritis/UTI Lab Data [facility] Lab Attestation statement: I reviewed the patient's lab results. 04/24/23 20:16 04/24/23 20:16 Labs: Lab Results 04/24/23 04/24/23 Range/Units 20:16 20:17 WBC 12.0 H (4.8-10.8) X10*3/uL RBC 4.64 (4.20-5.50) X10*6/uL Hgb 13.7 (12.0-16.0) g/dl Hct 39.6 (37.0-47.0) % MCV 85.3 (80.0-98.0) fL MCH 29.5 (27.0-33.0) pg MCHC 34.6 (31.0-35.0) g/dl RDW 12.1 (11.0-16.0) % Plt Count 267 (160-400) X10*3/uL MPV 9.8 (9.4-12.3) fL Immature Gran % (Auto) 0.3 (0.0-0.4) % Neut % (Auto) 68.8 (45-73) % Lymph % (Auto) 21.9 (20-40) % [place] % (Auto) 7.2 (2-11) % Eos % (Auto) 1.4 (0-4) % Baso % (Auto) 0.4 (0-2) % Lymph # (Auto) 2.6 (1.2-4.9) X10*3/uL [place] # (Auto) 0.9 (0.1-1.2) X10*3/uL Eos # (Auto) 0.2 (0.0-0.4) X10*3/uL Baso # (Auto) 0.1 (0.0-0.2) X10*3/uL Abs Immat Gran (auto) 0.04 H (0.00-0.03) X10*3/uL Absolute Neuts (auto) 8.3 (2.0-8.3) x10*3/uL Absolute Nucleated RBC 0.000 (0.0-0.012) X10*3/uL Nucleated RBC % (auto) 0.0 (0.0-0.2) /100WBC Sodium 140 (135-145) mmol/L Potassium 3.3 (3.3-5.1) mmol/L Chloride 104 (96-108) mmol/L Carbon Dioxide 28 (22-29) mmol/L Anion Gap 11 L (12-20) BUN 11 (9-16) mg/dL Creatinine 0.72 (0.5-1.4) mg/dL Estim Creat Clear Calc 124.9 Estimated GFR > 60 Random Glucose 101 (60-115) mg/dL Calcium 10.1 D (8.4-10.2) mg/dL Total Bilirubin 0.6 (0.0-1.0) mg/dL AST 19 (5-31) U/L ALT 18 (0-31) U/L Alkaline Phosphatase 61 (39-117) U/L Total Protein 7.8 (6.5-8.0) g/dL Albumin 4.3 (3.5-5.0) g/dL Lipase 34 (8-78) U/L Urine Color Yellow Urine Appearance Clear Urine pH 6.5 (5.0-9.0) Ur Specific [place] 1.020 (1.005-1.025) Urine Protein Negative (Neg-Trace) mg/dL Urine Glucose (UA) Negative (Negative) mg/dL Urine Ketones Trace (Negative) mg/dL Urine Blood Negative (Negative) Urine Nitrite Negative (Negative) Ur Leukocyte Esterase Negative (Negative) Urine RBC 0-2 (0-2) /HPF Urine WBC 0-5 (0-5) /HPF Ur Squamous Epith Cells 0-2 (0-2) /HPF Urine Bacteria None Seen (None Seen) Hyaline Casts 0-2 (0-2) /LPF Urine Test NEGATIVE (NEGATIVE) Radiology Impression Discussion of test interpretation with radiology: I have reviewed the radiologist's reading. Radiologist Impression: CT/CT abdomen pelvis wo IV con IMPRESSION: Partial fatty infiltration of the pancreas. There is mild infiltrative change along the head of the pancreas which is a subtle finding but may be secondary to mild pancreatitis. Correlation with pancreatic enzymes needed. There are diverticula of the descending and the sigmoid colon without diverticulitis. Fleischner guidelines were followed. Discharge Plan Discharge Clinical Impression: Acute nausea with nonbilious vomiting Patient Disposition: Home, Self-Care Instructions: Acute Nausea and Vomiting (ED) Additional Instructions: Drink plenty of fluids Medicine for nausea as prescribed Follow with PCP if not better Prescriptions: New ondansetron 4 mg tablet,disintegrating 4 mg PO Q6-8H PRN (Reason: nausea and vomiting) Qty: 10 0RF No Action ciprofloxacin HCl [Cipro] 500 mg tablet 500 mg PO BID Qty: 14 0RF metronidazole [Flagyl] 500 mg tablet 500 mg PO TID Qty: 20 0RF ondansetron 4 mg tablet,disintegrating 4 mg PO Q6-8H PRN (Reason: nausea and vomiting) Qty: 5 0RF benzonatate [Tessalon Perles] 100 mg capsule 100 mg PO TID PRN (Reason: cough) Qty: 30 0RF fluticasone propionate [Flonase Allergy Relief] 50 mcg/actuation spray,suspension 1 spray intranasal BID Qty: 16 0RF Rx Instructions: administer into each nostril loratadine [Claritin] 10 mg tablet 10 mg PO DAILY PRN (Reason: allergy symptoms) Qty: 10 0RF amoxicillin-pot clavulanate 875-125 mg tablet 1 tab PO BID 7 Days Qty: 14 0RF
[2023-04-24 20:25] LABS: MANUAL DIFF FLAG NO
[2023-04-24 20:28] LABS: Basophils Absolute Auto 0.1 X10*3/uL (0.0-0.2); Basophils Percent Auto 0.4 % (0-2); Eosinophils Absolute Auto 0.2 X10*3/uL (0.0-0.4); Eosinophils Percent Auto 1.4 % (0-4); Hematocrit 39.6 % (37.0-47.0); Hemoglobin 13.7 g/dl (12.0-16.0); Imm Gran Abs Auto 0.04 X10*3/uL (0.00-0.03); Imm Gran Pct Auto 0.3 % (0.0-0.4); Lymphocytes Absolute Auto 2.6 X10*3/uL (1.2-4.9); Lymphocytes Percent Auto 21.9 % (20-40); Mean Corpuscular HGB Conc 34.6 g/dl (31.0-35.0); Mean Corpuscular Hemoglobin 29.5 pg (27.0-33.0); Mean Corpuscular Volume 85.3 fL (80.0-98.0); Mean Platelet Volume 9.8 fL (9.4-12.3); Monocytes Absolute Auto 0.9 X10*3/uL (0.1-1.2); Monocytes Percent Auto 7.2 % (2-11); Neutrophils Absolute Auto 8.3 x10*3/uL (2.0-8.3); Neutrophils Percent Auto 68.8 % (45-73); Platelet Count 267 X10*3/uL (160-400); Red Blood Count 4.64 X10*6/uL (4.20-5.50); Red Cell Distribution Width 12.1 % (11.0-16.0)
[2023-04-24 20:33] LABS: Appearance Urine Clear; Color Urine Yellow; Glucose Urine UA Negative (Negative); Leukocyte Esterase Urine Negative (Negative); Nitrite Urine Negative (Negative); PH 6.5 (5.0-9.0); UPreg QC Valid YES; Urine Blood Negative (Negative); Urine Ketones Trace mg/dL (Negative); Urine Pregnancy NEGATIVE (NEGATIVE); Urine Protein Negative (Neg-Trace)
[2023-04-24 20:38] LABS: Bacteria Urine None Seen (None Seen); Hyaline Casts Urine 0-2 /LPF (0-2); RBC Urine 0-2 /HPF (0-2); Squamous Epithelial Cell Urine 0-2 /HPF (0-2); WBC Urine 0-5 /HPF (0-5)
[2023-04-24 20:42] LABS: Alanine Aminotransferase 18 U/L (0-31); Albumin Level 4.3 g/dL (3.5-5.0); Alkaline Phosphatase 61 U/L (39-117); Anion Gap 11 (12-20); Aspartate Amino Transferase 19 U/L (5-31); Bilirubin Total 0.6 mg/dL (0.0-1.0); Blood Urea Nitrogen 11 mg/dL (9-16); Calcium 10.1 mg/dL (8.4-10.2); Carbon Dioxide 28 mmol/L (22-29); Chloride 104 mmol/L (96-108); Creatinine Clr Calc Pharmacy 124.9; Estimated Glomerular Filt Rate > 60; Glucose Random 101 mg/dL (60-115); Lipase 34 U/L (8-78); Potassium 3.3 mmol/L (3.3-5.1); Sodium 140 mmol/L (135-145); Total Protein 7.8 g/dL (6.5-8.0)
[2023-04-24 22:13] VITALS: BP 122/84; PULSE 85; RESP 18; TEMP 36.6; O2SAT 96
[2023-04-25 02:15] VITALS: BP 109/68; PULSE 82; RESP 20; TEMP 36.6; O2SAT 98
[2023-04-25] MEDS: Morphine Sulfate 4 MG/ML CARTRIDGE IVPUSH (04:27)
[2023-04-25] MEDS: Famotidine/PF 20 MG/2 ML VIAL IVPUSH (04:27)
[2023-04-25] MEDS: ondansetron HCL 4 MG/2 ML VIAL IVPUSH (04:28)
[2023-04-25] MEDS: 0.9 % Sodium Chloride 1,000 ML 999 ML IV (04:28)
[2023-04-25 06:17] VITALS: BP 112/71; PULSE 74; RESP 16; TEMP 36.6; O2SAT 98
== END 2023-04-25 07:05 | disposition home or self-care (01) ==
PROVIDERS: Physician Assistant; Emergency Provider Internal Medicine; PCP Internal Medicine
DX: R11.2 Nausea with vomiting, unspecified (principal); R10.10 Upper abdominal pain, unspecified
CPT/HCPCS: 36415; 74176; 80053; 81001; 81025; 83690; 85025; 96374; 96375; 99284; J2270; J2405

== ENCOUNTER 2023-08-11 12:15 | Emergency (ER) | payer OTHER, SELFPAY ==
[2023-08-11] VITALS (9 sets, daily range): BP systolic 111–149; BP diastolic 67–83; PULSE 72–95; RESP 16–26; TEMP 36.3–36.6; O2SAT 97–100; BMI 34.3
--- NOTE | ~2023-08-11 | XR_ITS ---
EXAMINATION: XR CHEST CLINICAL INFORMATION: Acute shortness of breath COMPARISON: Chest 08/11/2023 TECHNIQUE: 2 views of the chest were obtained. FINDINGS: No significant abnormality is noted involving the heart, lungs, mediastinum, bony thorax or soft tissues. XR/XR chest 2V IMPRESSION: Unremarkable examination.
--- NOTE | 2023-08-11 12:22 | ED.GENADULT ---
HPI - General Adult General Chief complaint: Syncope Stated complaint: Diff Breathing Time Seen by Provider: 08/11/23 16:06 Source: patient and family Mode of arrival: ambulatory Limitations: no limitations History of Present Illness HPI narrative: This is a 48-year-old female s/p gastric bypass on 07/01/2023 at [facility],Patient was sitting in the family room noticed to put her head down coffee table patient did not respond to her family when they try to wake her up for few seconds and patient do not remember passing out, patient already suffer from GERD and chest pain, been having epigastric burning sensation ever since the surgery, then 2 days ago patient started to have shortness of breath with wheezing that responded to her albuterol pump at home, patient been having vomiting and multiple syncopal episode after the surgery, patient lost about 40 lb since the surgery admitted to decreased p.o. intake. No other abdominal pain now. no sick contact, no recent travel, no fever, no chills. Related Data Previous Rx's Medication Instructions Recorded ciprofloxacin HCl 500 mg tablet 500 mg PO BID #14 tabs 04/16/21 (Cipro) metronidazole 500 mg tablet 500 mg PO TID #20 tabs 04/16/21 (Flagyl) ondansetron 4 mg disintegrating 4 mg PO Q6-8H PRN nausea and 04/16/21 tablet vomiting #5 tabs benzonatate 100 mg capsule 100 mg PO TID PRN cough #30 caps 05/16/21 (Tessalon Perles) fluticasone propionate 50 1 spray intranasal BID #16 grams 05/16/21 mcg/actuation nasal spray,suspension (Flonase Allergy Relief) loratadine 10 mg tablet (Claritin) 10 mg PO DAILY PRN allergy 05/16/21 symptoms #10 tabs amoxicillin 875 mg-potassium 1 tab PO BID 7 days #14 tabs 02/10/23 clavulanate 125 mg tablet ondansetron 4 mg disintegrating 4 mg PO Q6-8H PRN nausea and 04/25/23 tablet vomiting #10 tabs Allergies Allergy/AdvReac Type Severity Reaction Status Date / Time ibuprofen [IBUPROFEN] Allergy Intermediate STOMACH Verified 08/11/23 12:29 BURNING meperidine [Demerol] Allergy Unknown Palpitation Verified 08/11/23 12:29 s From Demerol Allergy Severe HEART Uncoded 05/03/20 15:25 PALPITATIONS, BODY NUMBNESS Review of Systems Review of Systems: all other systems are reviewed and are negative Constitutional: Reports as per HPI and Reports no additional constitutional complaints Eyes: Reports as per HPI and Reports no additional eye complaints Reports system reviewed and no additional complaints, except as documented Cardiovascular: Reports as per HPI and Reports no additional cardiovascular complaints Respiratory: Reports as per HPI and Reports no additional respiratory complaints Gastrointestinal: Reports as per HPI and Reports no additional gastrointestinal complaints Genitourinary: Reports no additional female genitourinary complaints Musculoskeletal: Reports no additional musculoskeletal complaints Skin/Breast: Reports system reviewed and no additional complaints, except as docu Psychiatric: Reports no additional psychiatric complaints Endocrine: Reports no additional endocrine complaints Hematologic/Lymphatic: Reports no additional hematologic/lymphatic complaints Allergic/Immunologic: Reports no additional allergic/immunologic complaints Reports system reviewed and no additional complaints, except as documented and Reports Abnormal speech present [facility] Past Medical History Medical History GERD (gastroesophageal reflux disease) Hypertension Anxiety Asthma Surgical History Gastric bypass status for obesity History of hysterectomy Social History Social History Alcohol intake: never Smoked in Last 30 Days: No Use of substances other than those prescribed or required for medical reasons: No Advance Directives: No Advance Directives Information Provided: Yes Patient : No Physical Exam ED Vital Signs: Vital Signs - 24 hr 08/11/23 12:29 08/11/23 12:52 08/11/23 13:15 Temperature 97.4 F 97.7 F Pulse Rate 93 95 Respiratory Rate 26 H 19 Blood Pressure 147/79 H 149/81 H Pulse Oximetry 100 97 100 Oxygen Delivery Method Room Air Room Air Room Air 08/11/23 13:16 08/11/23 14:28 08/11/23 16:19 Temperature 97.8 F Pulse Rate 78 77 72 Respiratory Rate 16 16 Blood Pressure 115/67 111/67 Pulse Oximetry 97 Oxygen Delivery Method Room Air 08/11/23 16:20 08/11/23 16:22 08/11/23 18:03 Temperature Pulse Rate 76 87 75 Respiratory Rate 16 Blood Pressure 124/74 144/83 H 144/83 H Pulse Oximetry 98 Oxygen Delivery Method Room Air BMI result Body Mass Index 34.3 Vital signs have been reviewed and appear to be correct. Blood pressure elevated. Heart rate normal. Respiratory rate normal. Temperature normal. Oxygen saturation normal. Appearance: Alert. Oriented X3. No acute distress. Head: Normal external exam. Normocephalic. Atraumatic. No [place] signs noted. No raccoon eyes noted Eyes: PERRLA. EOMI. Conjunctiva and sclera normal. Eyelids normal. ENT: TM's Normal. Pharynx normal. Uvula midline. Moist mucous membranes. No trismus noted. No drooling noted. No muffled voice noted. Neck: Normal inspection. Neck supple. FROM. No adenopathy. Thyroid Normal. No meningeal signs. No neck mass noted. CVS: Normal heart rate and rhythm. Heart sound normal. No murmurs noted. Pulses normal throughout. Respiratory: No respiratory distress. Painless inspiration. Breath sounds normal. No wheezes/rales/rhonchi noted. Chest nontender. No accessory muscle usage noted or decreased air movement noted. Abdomen: Soft and nontender. Bowel sounds normal in all 4 quadrants. No distention noted. No organomegaly noted. No visible injury noted. Back: No CVA tenderness. Full range of motion noted. Skin: Skin warm and dry. Normal skin color. Normal skin turgor. No rashes/lesions/lacerations noted. Extremities: No lower extremity edema. Extremities exhibit normal range of motion. Extremities nontender. Neuro: Oriented X 3. Cranial nerve exam: II-XII are grossly intact No motor deficit. No sensory deficit. Reflexes normal. Course Course Course Narrative: RME:?48 yo female hx of asthma, gastric bypass 1 mo ago for GERD here s/p syncopal episode [employer] and SOB for weeks after surgery. She was sitting at table [employer] when she passed out. Does not recall event. Unwitnessed with unknown down time. son bought her immediately to ED. Afebrile, not hypoxic Plan for labs, ddimer, ed bronch protocol, CXR, trop, ekg Full HPI, ROS and PE to be performed by the primary ED provider. Reevaluation(s) Reevaluation #1: patient feels better after was given 1 L of normal saline, patient was observed in the emergency department for about 11 hours waiting for the workup has stable vital signs, patient's symptoms is likely due to decreased fluid intake secondary to the surgery and GERD, patient was instructed to follow-up with her GI doctor, patient at low risk for pulmonary embolism with a negative D-dimer. Improved with albuterol in the ED, cardiac event is not likely was -2 troponin. 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 Time: 21:47 Medications Administered Discontinued Medications Generic Name Dose Route Start Last Admin Trade Name Freq PRN Reason Stop Dose Admin Albuterol/Ipratropium 3 ml 08/11/23 13:08 08/11/23 13:16 Albuterol/Iprat 2.5/0.5mg 3 Ml Ampul.Neb INHALE 08/11/23 13:09 3 ml ONCE ONE Administration Famotidine 20 mg 08/11/23 16:16 08/11/23 18:06 Famotidine/Pf 20 Mg/2 Ml Vial IVPUSH 08/11/23 16:17 20 mg ONCE ONE Administration Sodium Chloride 1,000 mls @ 999 mls/hr 08/11/23 16:16 08/11/23 20:07 Ns IV 08/11/23 17:16 Infused .Q1H1M ONE Infusion Potassium Chloride 10 meq in 100 mls @ 100 mls/hr 08/11/23 16:16 08/11/23 19:01 Potassium Chloride/H20 IV 08/11/23 17:15 Infused ONCE ONE Infusion Ondansetron HCl 4 mg 08/11/23 16:16 08/11/23 18:07 Ondansetron Hcl 4 Mg/2 Ml Vial IVPUSH 08/11/23 16:17 4 mg ONCE ONE Administration Medical Decision Making Differential Diagnosis Differential Diagnoses: The differential diagnosis associated with the presentation includes ( ACS, pulmonary embolism, dehydration, electrolyte abnormality, severe anemia, pneumonia, pneumothorax.) Admission/Observation Consideration of admission/observation: Escalation of care including admission/observation considered Lab Data MDM Lab Attestation statement: I reviewed the patient's lab results. 08/11/23 12:43 08/11/23 12:43 Labs: Lab Results 08/11/23 08/11/23 Range/Units 12:43 20:15 WBC 5.6 (4.8-10.8) X10*3/uL RBC 4.22 (4.20-5.50) X10*6/uL Hgb 12.4 (12.0-16.0) g/dl Hct 36.8 L (37.0-47.0) % MCV 87.2 (80.0-98.0) fL MCH 29.4 (27.0-33.0) pg MCHC 33.7 (31.0-35.0) g/dl RDW 15.0 (11.0-16.0) % Plt Count 203 (160-400) X10*3/uL MPV 11.2 (9.4-12.3) fL Immature Gran % (Auto) 0.2 (0.0-0.4) % Neut % (Auto) 49.5 (45-73) % Lymph % (Auto) 38.0 (20-40) % [place] % (Auto) 9.1 (2-11) % Eos % (Auto) 2.5 (0-4) % Baso % (Auto) 0.7 (0-2) % Lymph # (Auto) 2.1 (1.2-4.9) X10*3/uL [place] # (Auto) 0.5 (0.1-1.2) X10*3/uL Eos # (Auto) 0.1 (0.0-0.4) X10*3/uL Baso # (Auto) 0.0 (0.0-0.2) X10*3/uL Abs Immat Gran (auto) 0.01 (0.00-0.03) X10*3/uL Absolute Neuts (auto) 2.8 (2.0-8.3) x10*3/uL Absolute Nucleated RBC 0.000 (0.0-0.012) X10*3/uL Nucleated RBC % (auto) 0.0 (0.0-0.2) /100WBC D-Dimer High Sensitivty 167 NG/ML Sodium 144 (135-145) mmol/L Potassium 2.9 L (3.3-5.1) mmol/L Chloride 110 H (96-108) mmol/L Carbon Dioxide 27 (22-29) mmol/L Anion Gap 10 L (12-20) BUN 9 (9-16) mg/dL Creatinine 0.56 (0.5-1.4) mg/dL Estim Creat Clear Calc 132.5 Estimated GFR > 60 Random Glucose 142 H (60-115) mg/dL Calcium 8.9 D (8.4-10.2) mg/dL Magnesium 1.7 (1.6-2.6) mg/dL Total Bilirubin 0.6 (0.0-1.0) mg/dL Direct Bilirubin 0.2 (0.0-0.5) mg/dL AST 31 (5-31) U/L ALT 23 (0-31) U/L Alkaline Phosphatase 48 (39-117) U/L Troponin I High Sens 3.5 2.7 (<3.5-17.0) ng/L Total Protein 6.7 (6.5-8.0) g/dL Albumin 3.9 (3.5-5.0) g/dL Lipase 13 (8-78) U/L Influenza Type A (PCR) NEGATIVE (Negative) Influenza Type B (PCR) NEGATIVE (Negative) RSV RNA Qual (PCR) NEGATIVE (Negative) SARS-CoV-2 RNA (RT-PCR) NEGATIVE (Negative) Independent Interpretation I performed an independent interpretation of an: EKG ( Normal sinus rhythm at 87 beats per minutes, incomplete right bundle branch block, nonspecific ST -T changes, no significant change from prior EKG) and Plain X-Ray ( chest: Unremarkable examination.) Radiology Impression Discussion of test interpretation with radiology: I have reviewed the radiologist's reading. Discharge Plan Discharge Clinical Impression: Vasovagal syncope Patient Disposition: Home, Self-Care Instructions: Syncope (ED) Prescriptions: No Action ciprofloxacin HCl [Cipro] 500 mg tablet 500 mg PO BID Qty: 14 0RF metronidazole [Flagyl] 500 mg tablet 500 mg PO TID Qty: 20 0RF ondansetron 4 mg tablet,disintegrating 4 mg PO Q6-8H PRN (Reason: nausea and vomiting) Qty: 5 0RF benzonatate [Tessalon Perles] 100 mg capsule 100 mg PO TID PRN (Reason: cough) Qty: 30 0RF fluticasone propionate [Flonase Allergy Relief] 50 mcg/actuation spray,suspension 1 spray intranasal BID Qty: 16 0RF Rx Instructions: administer into each nostril loratadine [Claritin] 10 mg tablet 10 mg PO DAILY PRN (Reason: allergy symptoms) Qty: 10 0RF amoxicillin-pot clavulanate 875-125 mg tablet 1 tab PO BID 7 Days Qty: 14 0RF ondansetron 4 mg tablet,disintegrating 4 mg PO Q6-8H PRN (Reason: nausea and vomiting) Qty: 10 0RF Referrals: Eugenio Bishop MD [Primary Care Provider] - Interventions: ED Discharge Assessment Last Done: 08/11/23 22:03
--- NOTE | 2023-08-11 12:27 | ECG_ITS ---
Test Reason : syncope Blood Pressure : / mmHG Vent. Rate : 087 BPM Atrial Rate : 087 BPM P-R Int : 162 ms QRS Dur : 108 ms QT Int : 396 ms P-R-T Axes : 076 -01 -21 degrees QTc Int : 476 ms Normal sinus rhythm Incomplete right bundle branch block Nonspecific ST and T wave abnormality Abnormal ECG When compared with ECG of 14-MAR-2020 13:05, Inverted T waves have replaced nonspecific T wave abnormality in Inferior leads T wave inversion now evident in Anterior leads Referred By: Martha Bernal Electronically Signed By:EMILE CHRISTOPHER
[2023-08-11 12:48] LABS: MANUAL DIFF FLAG NO
[2023-08-11 12:49] LABS: Basophils Percent Auto 0.7 % (0-2); Eosinophils Absolute Auto 0.1 X10*3/uL (0.0-0.4); Eosinophils Percent Auto 2.5 % (0-4); Hematocrit 36.8 % (37.0-47.0); Hemoglobin 12.4 g/dl (12.0-16.0); Imm Gran Abs Auto 0.01 X10*3/uL (0.00-0.03); Imm Gran Pct Auto 0.2 % (0.0-0.4); Lymphocytes Absolute Auto 2.1 X10*3/uL (1.2-4.9); Mean Corpuscular HGB Conc 33.7 g/dl (31.0-35.0); Mean Corpuscular Hemoglobin 29.4 pg (27.0-33.0); Mean Corpuscular Volume 87.2 fL (80.0-98.0); Mean Platelet Volume 11.2 fL (9.4-12.3); Monocytes Absolute Auto 0.5 X10*3/uL (0.1-1.2); Monocytes Percent Auto 9.1 % (2-11); Neutrophils Absolute Auto 2.8 x10*3/uL (2.0-8.3); Neutrophils Percent Auto 49.5 % (45-73); Platelet Count 203 X10*3/uL (160-400); Red Blood Count 4.22 X10*6/uL (4.20-5.50); White Blood Count 5.6 X10*3/uL (4.8-10.8)
[2023-08-11 13:01] LABS: D Dimer High Sensitivity 167 NG/ML
[2023-08-11 13:03] LABS: Anion Gap 10 (12-20); Blood Urea Nitrogen 9 mg/dL (9-16); Calcium 8.9 mg/dL (8.4-10.2); Carbon Dioxide 27 mmol/L (22-29); Chloride 110 mmol/L (96-108); Creatinine Clr Calc Pharmacy 132.5; Estimated Glomerular Filt Rate > 60; Glucose Random 142 mg/dL (60-115); Lipase 13 U/L (8-78); Magnesium 1.7 mg/dL (1.6-2.6); Potassium 2.9 mmol/L (3.3-5.1); Sodium 144 mmol/L (135-145)
[2023-08-11 13:11] LABS: Troponin-I High Sensitivity 3.5 ng/L (<3.5-17.0)
[2023-08-11] MEDS: Albuterol/Iprat 2.5/0.5MG 3 ML AMPUL.NEB INHALE (13:16)
[2023-08-11 13:28] LABS: Influenza A PCR NEGATIVE (Negative); Influenza B PCR NEGATIVE (Negative); Resp Syncy Virus RNA Qual PCR NEGATIVE (Negative); SARS COV2 PCR INHOUSE NEGATIVE (Negative)
--- NOTE | 2023-08-11 16:11 | PC.NURSE ---
[employer] at bedside to evaluate patient.
[2023-08-11 16:47] LABS: Alanine Aminotransferase 23 U/L (0-31); Albumin Level 3.9 g/dL (3.5-5.0); Alkaline Phosphatase 48 U/L (39-117); Aspartate Amino Transferase 31 U/L (5-31); Bilirubin Direct 0.2 mg/dL (0.0-0.5); Bilirubin Total 0.6 mg/dL (0.0-1.0); Total Protein 6.7 g/dL (6.5-8.0)
--- NOTE | 2023-08-11 17:25 | PC.NURSE ---
Pt ambulatory to the BR with a steady gait.
[2023-08-11] MEDS: Famotidine/PF 20 MG/2 ML VIAL IVPUSH (18:06)
[2023-08-11] MEDS: 0.9 % Sodium Chloride 1,000 ML 999 ML IV (18:06)
[2023-08-11] MEDS: ondansetron HCL 4 MG/2 ML VIAL IVPUSH (18:07)
[2023-08-11] MEDS: Potassium Chloride/H20 10 MEQ/100 ML PIGGYBACK 100 MEQ IV (18:07)
[2023-08-11 20:46] LABS: Troponin-I High Sensitivity 2.7 ng/L (<3.5-17.0)
== END 2023-08-11 22:04 | disposition home or self-care (01) ==
PROVIDERS: Physician Assistant Medical; Emergency Provider Emergency Medicine; PCP Internal Medicine
DX: R55 Syncope and collapse (principal); I45.10 Unspecified right bundle-branch block; R11.2 Nausea with vomiting, unspecified; Z20.822 Contact with and (suspected) exposure to COVID-19; Z20.828 Contact with and (suspected) exposure to other viral communicable diseases; Z79.899 Other long term (current) drug therapy
CPT/HCPCS: 0241U; 36415; 71046; 80048; 80076; 83690; 83735; 84484; 85025; 85379; 93005; 94640; 96361; 96374; 96375; 99285; J2405; J3480

== ENCOUNTER → 2023-08-11 12:27 | Outpatient (BNV) | payer OTHER, SELFPAY | PROVIDERS: Emergency Provider Emergency Medicine; PCP Internal Medicine; Visit Provider Internal Medicine | DX: R55 Syncope and collapse (principal) | CPT/HCPCS: 93010 ==

== ENCOUNTER 2023-11-16 09:52 | Outpatient (REF) | payer OTHER, SELFPAY ==
--- NOTE | ~2023-11-16 | MM_ITS ---
EXAMINATION: MM SCREENING DIGITAL BREAST TOMOSYNTHESIS, BILATERAL CLINICAL INFORMATION: Screening. Asymptomatic. COMPARISON: Mammography: This study is compared with prior exams dating back to 2021. TECHNIQUE: Digital breast tomosynthesis is performed in both the craniocaudal and mediolateral oblique views along with computer-aided detection (CAD). Synthesized 2D images are generated from the tomosynthesis. FINDINGS: The breasts are heterogeneously dense, which may obscure small masses (ACR BI-RADS breast composition Category c). There are no significant masses, abnormal calcifications, or other abnormalities. MM/MM tomosynthesis screening BI IMPRESSION: No mammographic evidence of malignancy. ASSESSMENT: BI-RADS BI-RADS 1 - Negative RECOMMENDATION: Routine annual mammography screening. 1 year F/U This examination should not preclude the clinical evaluation of a suspicious palpable abnormality. This patient's information was entered into a reminder system with a target due date for their next mammogram.
== END 2023-11-16 09:53 | disposition home or self-care (01) ==
LOC: HO.MAMMO 09:52
PROVIDERS: PCP Internal Medicine; Visit Provider Internal Medicine
DX: Z12.31 Encounter for screening mammogram for malignant neoplasm of breast (principal)
CPT/HCPCS: 77063; 77067

== ENCOUNTER → 2023-11-16 10:15 | Outpatient (BNV) | payer OTHER, SELFPAY | PROVIDERS: PCP Internal Medicine; Visit Provider Radiology Diagnostic Radiology | DX: Z12.31 Encounter for screening mammogram for malignant neoplasm of breast (principal) | CPT/HCPCS: 77063; 77067 ==

== ENCOUNTER 2024-01-12 09:42 | Outpatient (REF) | payer OTHER, SELFPAY ==
--- NOTE | ~2024-01-12 | US_ITS ---
EXAMINATION: US BREAST LIMITED, BILATERAL CLINICAL INFORMATION: Patient complains of tender palpable lumps in the 7:00 region of the right breast 11 cm from the nipple and in the o'clock region of the left breast 5 cm from the nipple. The patient had a normal screening mammogram on 11/16/2023. COMPARISON: Mammography: This study is correlated with the recent mammogram from 11/16/2023. COMPARISON: None TECHNIQUE: Targeted sonographic evaluation was performed using a high frequency linear transducer. Selected archived documentation. FINDINGS: BILATERAL TARGETED BREAST SONOGRAPHY: Sonography of the 7:00 location of the right breast, 11 cm from the nipple reveals no discrete abnormality. Similarly, sonography of the 1:00 location of the left breast 5 cm from the nipple also reveals no discrete abnormality. US/US breast BI limited mamm only IMPRESSION: No sonographic evidence of malignancy. No sonographic correlates with the patient's areas of tender palpable lumps in the right breast at the 7:00 and in the left breast at the 1:00 location. Ultrasound: BI-RADS 1 - Negative RECOMMENDATION: 1. Patient should be managed based on the clinical impression. 2. Otherwise, routine annual screening mammography. Results were provided to the patient at time of visit by the technologist. This patient's information was entered into a reminder system with a target due date for their next mammogram.
== END 2024-01-12 09:43 | disposition home or self-care (01) ==
LOC: HO.MAMMO 09:42
PROVIDERS: PCP Internal Medicine; Visit Provider Internal Medicine
DX: N63.13 Unspecified lump in the right breast, lower outer quadrant (principal); N63.23 Unspecified lump in the left breast, lower outer quadrant
CPT/HCPCS: 76642

== ENCOUNTER → 2024-01-12 10:30 | Outpatient (BNV) | payer OTHER, SELFPAY | PROVIDERS: PCP Internal Medicine; Visit Provider Radiology Diagnostic Radiology | DX: N63.25 Unspecified lump in the left breast, overlapping quadrants (principal) | CPT/HCPCS: 76642 ==

== ENCOUNTER 2024-06-08 10:43 | Outpatient (REF) | payer OTHER, SELFPAY | END 2024-06-08 10:44 | disposition home or self-care (01) | LOC: HO.XRAY 10:43 | PROVIDERS: Visit Provider Physician Assistant | DX: M25.561 Pain in right knee (principal); M25.551 Pain in right hip | CPT/HCPCS: 73502; 73560 ==

== ENCOUNTER 2024-11-21 09:51 | Outpatient (REF) | payer OTHER, SELFPAY ==
--- OUTSIDE RECORDS SUMMARY | 2024-11-21 11:29 | XMS_ITS | Encounter Summary ---
Author Organization [employer] [facility] Address [address] [place] [address] Care Team Providers Care Adon Name Role Phone Unavailable Primary Care Provider Unavailabl e Encounter Details Date Type Department Care Team (Latest Contact Info) Description 10/07/2019 Abstract [facility] CONVERSIONS Dental, Provider, DDS Social History Tobacco Use Types Packs/Day Years Used Date Smoking Tobacco: Never Assessed Comments Unknown Sex and Gender Information Value Date Recorded Sex Assigned at Female 06/16/2022 10:25 AM EDT Legal Sex Female 10:25 AM EDT Gender Identity Female 06/16/2022 10:25 AM EDT Sexual Orientation Straight 06/16/2022 10 :25 AM EDT documented as of this encounter Plan of Treatment Not on file documented as of this encounter Visit Diagnoses Not on filedocumented in this encounter
--- OUTSIDE RECORDS SUMMARY | 2024-11-21 11:29 | XMS_ITS | Encounter Summary ---
Author Organization [employer] [facility] Address [address] [place] [address] Care Team Providers Care Party Plan Sales Agent Name Role Phone Unavailable Primary Care Provider Unavailabl e Encounter Details Date Type Department Care Team (Latest Contact Info) Description 04/03/2022 Abstract [facility] CONVERSIONS Dental, Provider, DDS Social History Tobacco [...]
--- OUTSIDE RECORDS SUMMARY | 2024-11-21 11:29 | XMS_ITS | Clinical Summary ---
Author Organization [facility] Address [address] [place] [address] Phone Care Team Providers Care Home Economics Expert Name Role Phone Eugenio Bishop MD Primary Care Provider [phone] Allergies Active Allergy Reactions Criticality Noted Date Comments Meperidine 04/23/2018 paralysis Medications acetaminophen (TYLENOL) 500 mg tablet Take 2 Tablets by mouth every 8 hours for 30 days. 3 Active albuterol HFA (PROAIR HFA ; PROVENTIL HFA ; VENTOLIN HFA) 90 mcg/actuation inhaler Inhale 2 Puffs into the lungs every 4 hours as needed. Active buPROPion XL (WELLBUTRIN XL) 150 mg 24 hr tablet Take 1 tablet (150 mg total) by mouth 1 (one) time each day. 2 Active docusate sodium (COLACE) 100 mg capsule Take 1 capsule (100 mg total) by mouth 2 (two) times a day. Active DULoxetine (CYMBALTA) [address] capsule Take 1 capsule (60 mg total) by mouth 1 (one) time each day. Active ferrous sulfate 325 mg (65 mg iron) EC tablet Take 1 tablet (325 mg total) by mouth 1 (one) time each day. 9 Active fluticasone propionate (FLONASE) 50 mcg/actuation nasal spray 2 Active gabapentin (NEURONTIN) 400 mg capsule Take 400 mg by mouth 3 times daily. Active hydroCHLOROthia zide (HYDRODIURIL) 25 mg tablet Take 1 tablet (25 mg total) by mouth 1 (one) time each day. Active polyethylene glycol (GaviLyte-G) 236-22.74-6.74 -5.86 gram solution 3 Active lisinopriL (PRINIVIL,ZESTR IL) 20 mg tablet Take 1 tablet (20 mg total) by mouth 1 (one) time each day. Active metoprolol succinate (Kapspargo Sprinkle) 25 mg capsule,sprinkl e,ER 24hr Take by mouth. Activ e nystatin, bulk, 10 billion unit powder 1 Each by Does not apply route daily as needed (rash). 4 Active omeprazole (PriLOSEC) [address] capsule Take 1 capsule (40 mg total) by mouth 1 (one) time each day. Active pantoprazole (PROTONIX) 40 mg EC tablet Take 1 tablet (40 mg total) by mouth 1 (one) time each day. 3 Active potassium chloride 20 mEq tablet extended release Take 1 Tablet by mouth daily for 3 days. 4 Active simethicone (MYLICON) 80 mg chewable tablet Take 1 Tablet by mouth every 6 hours as needed for Flatulence for up to 30 days. 3 Active triamcinolone (KENALOG) 0.1 % cream 2 Active verapamil ER (VERELAN) 360 mg 24 hr capsule Take 1 capsule (360 mg total) by mouth at bedtime. Active wheat dextrin (Benefiber Clear SF, dextrin,) 3 gram/3.5 gram powder in packet Take 4 g by mouth daily. 3 Active VITAMIN A ORAL Take 1 Tablet by mouth daily. 4 Active topiramate (TOPAMAX) 25 mg tablet Take 1 tablet (25 mg total) by mouth 2 (two) times a day. Active ergocalciferol (VITAMIN D-2) 1,250 mcg (50,000 unit) capsule TAKE 1 CAPSULE BY MOUTH 1 TIME A WEEK FOR 8 DOSES 4 capsule 5 Active Active Problems Problem Noted Date Diagnosed Date Overweight (BMI 25.0-29.9) 07/04/2024 Asthma 05/23/2024 DDD (degenerative disc disease), lumbar 05/23/20 GERD (gastroesophageal reflux disease) 4 Hypertension 05/23/2024 Obstructive sleep apnea 05/23/2024 Class 1 obesity with serious comorbidity and body mass index (BMI) of 30.0 to 30.9 in adult 05/23/2024 Sacroiliitis 03/07/2022 Overview (05/23/2024): Last Assessment & Plan: Patient saw Dr. Mclean February 2022 for right sacroiliitis, she had right SI joint injection 05/26/2022 and states that helped her for quite a few months. Now she feels like the symptoms have recurred, are similar in distribution, she notes pain in the right buttock and hip, down the right lateral leg. She feels like she is limping, almost fell 2 weeks ago because the leg buckled. She denies any left leg symptoms. She will get numbness tingling to the right medial foot. She states her pain is terrible in the morning, its hard to get out of bed. She states it is feels better walking with a walker and leaning on her grandsons carriage. She rates her daily pain 4-10/10. Ms. Gordon would like to try another right SI joint injection. I gave her a prescription to try an SI belt. I will check right SI joint and hip x-rays as well. She had a lumbar spine MRI 02/24/2022 at [facility] that did not show any significant right-sided nerve root impingement. If she has persistent symptoms and is not better after the SI joint injection, I can check an updated MRI lumbar spine. I reviewed her MRI lumbar spine images with her in detail on the computer. All questions answered. She will call with any concerns or questions. I will have her follow-up with Dr. Mclean after the injection. 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 I reviewed thoracic MRI on the computer, and showed patient radiology report. Exam today without any hyperreflexia or concerns for cord compression. I did not order a follow-up thoracic MRI today. Abdominal panniculus, symptomatic 09/08/2019 Intestinal malabsorption following gastrectomy 0 12/14/2018 Migraines 04/23/2018 Vitamin D deficiency 02/09/2018 Immunizations Name Administration Dates Next Due Influenza trivalent, with pr eservative (Fluzone; Afluria) 6mo and older 04/18/2017 Td Tetanus diptheria (Tdvax) 7yo and older 07/04 Surgical History Surgery Date Site/Laterality Comments OTHER SURGICAL HISTORY PROCEDURE: HISTORICAL TOTAL HYSTERECTOMY W/O BSO OTHER SURGICAL HISTORY PROCEDURE: ARTHROSCOPY PROCEDURE NEC HYSTERECTOMY PROCEDURE: HISTORICAL HYSTERECTOMY TONSILLECTOMY ADENOIDECTOMY, BILATERAL MYRINGOTOMY AND TUBES PROCEDURE: [place] TONSILLECTOMY & ADENOIDECTOMY <AGE 11 OTHER SURGICAL HISTORY 1992 PROCEDURE: HISTORY OTHER; COMMENT: T11-L1 laminectomy for resection of thoracolumbar tumor OTHER SURGICAL HISTORY 06/02/2018 PROCEDURE: HISTORY OTHER; COMMENT: Gastric sleeve, Dr. Virgen Medical History Medical History Date Comments Asthma DX:Asthma Class 3 obesity without seri ous comorbidity with body mass index (BMI) of 50.0 to 59.9 in adult 03/01/2018 DX:Class 3 obesity without s erious comorbidity with body mass index (BMI) of 50.0 to 59.9 in adult DDD (degenerative disc disea se), lumbar DX:DDD (degenerative disc di sease), lumbar GERD (gastroesophageal reflux disease) DX:GERD (gastroesophageal reflux disease) Hypertension DX:Hypertension Migraines 04/23/2018 DX:Migraines Obstructive sleep apnea DX:Obstr uctive sleep apnea Vitamin D deficiency 02/09/2018 DX:Vitamin D deficiency Class 2 severe obesity due t o excess calories with serious comorbidity and body mass index (BMI) of 36.0 to 36.9 in adult ([facility]) 12/14/2018 DX:Class 2 severe obesity du e to excess calories with serious comorbidity and body mass index (BMI) of 36.0 to 36.9 in adult ([facility]) Family History Medical History Relation Name Comments Diabetes Father CVA, Alzheimers disease, HTN Diabetes Maternal Grandmother Diabetes Mother HTN Coronary artery disease Uncle maternal Relation Name Status Comments Father Maternal Grandmother Mother Uncle maternal Alive Social History Tobacco Use Types Packs/Day Years Used Date Smoking Tobacco: Never Smokeless Tobacco: Never Tobacco Cessation:Counseling Given: Not Answered Alcohol Use Standard Drinks/Week Comments No 0 (1 standard drink = 0.6 oz pur e alcohol) Comments Unknown Sex and Gender Information Value Date Recorded Sex Assigned at Not on file Legal Sex Female 10:47 PM EST Gender Identity Not on file Sexual Orientation Not on file Obstetrics History Last Filed Vital Signs Vital Sign Reading Time Taken Comments Blood Pressure 130/80 07/26/2024 8:48 AM EST Pulse 73 07/26/2024 8:48 AM EST Temperature - - Respiratory Rate - - Oxygen Saturation - - Inhaled Oxygen Concentration - - Weight 81 kg (178 lb 9.6 oz) 07/26/2024 8:47 AM EST Height 162.6 cm (5' 4 ) 07/26/2024 8:47 AM EST Body Mass Index 30.66 07/26/2024 8:47 AM EST Plan of Treatment Upcoming Encounters Date Type Department Care Team (Late st Contact Info) Description 11/25/2024 2:00 PM EDT Office Visit Neurosurgery [facility] [address] [facility] [address] [place] [phone] Nash Jauregui PA [address] [facility] [address] [place] [address] 01/24/2025 8:30 AM EDT Office Visit Bariatric Surgery - [place] [address] [facility] [address] [place] [phone] Norma Mcallister PA [address] [facility] [address] [place] [address] Health Maintenance Due Date Last Done Comments Breast Cancer Screening 1974 Hepatitis B Vaccines (1 of 3 - 19+ 3-dose series) 1993 Pneumococcal Vaccine: 50+ Years (1 of 2 - PCV) 1993 Pneumococcal Vaccine: Pediatrics (0 to 5 Years) and At-Risk Patients (6 to 64 Years) (1 of 2 - PCV) 1993 Cervical Cancer Screening: P ap Smear 1995 Cholesterol Screening (Lipid Panel) 07/20/2022 Colorectal Cancer Screening: Colonoscopy 07/20/2022 Depression Screening 07/20/2022 HIV Screening 07/20/2022 Hepatitis C Screening 07/20/2022 Social Influencers of Health Screening 07/20/2022 COVID-19 Vaccine ( - 2023-2 5 season) 2024 08/06/2022, 2021, 11/06/2020 Zoster Vaccines (1 of 2) 2024 Hypertension/CHF/CAD Annual BMP Blood Test 05/02/2025 05/02/2024, 05/02/2024 DTaP,Tdap,and Td Vaccines (3 - Td or Tdap) 02/10/2033 02/10/2023, 07/04/2013 Influenza Vaccine Completed 05/10/2024, 06/01/2023, 04/18/2017 HIB Vaccines Aged Out No longer eligi ble based on patient's age to complete this topic HPV Vaccines Aged Out No longer eligi ble based on patient's age to complete this topic Hepatitis A Vaccines Aged Out No long er eligible based on patient's age to complete this topic IPV Vaccines Aged Out No longer eligi ble based on patient's age to complete this topic MMR Vaccines Aged Out No longer eligi ble based on patient's age to complete this topic Meningococcal ACWY Vaccine Aged Out N o longer eligible based on patient's age to complete this topic Meningococcal B Vacine Aged Out No lo nger eligible based on patient's age to complete this topic RSV Immunization Patients Under 20 months Aged Out No longer eligible b ased on patient's age to complete this topic Varicella Vaccines Aged Out No longer eligible based on patient's age to complete this topic Procedures Procedure Name Priority Date/Time Associated Diagnosis Comments ANNUAL BMP BLOOD TEST Routine 05/02/2024 from Last 3 Months or Most Recently Relevant to Health Maintenance Results * Annual BMP Blood Test (05/02/2024) Annual BMP Blood Test abstracted Historical Provider MD HEALTH MAINTENANCE Final Result from Last 3 Months or Most Recently Relevant to Health Maintenance Insurance [facility] [employer] Care Teams Home Economics Expert Relationship Specialty Start Date End Date Eugenio Bishop MD [address] [place] [id number] PCP - General Internal Medicine 06/28/24
--- OUTSIDE RECORDS SUMMARY | 2024-11-21 11:29 | XMS_ITS | Encounter Summary ---
Author Organization [employer] [facility] Address [address] [facility] [address] [place] [address] Care Team Providers Care Powerhouse Mechanic Supervisor Name Role Phone Unavailable Primary Care Provider Unavailabl e Encounter Details Date Type Department Care Team (Latest Contact Info) Description 01/21/2021 Abstract HHC CONVERSIONS Dental, Provider, DDS Social [...]
--- OUTSIDE RECORDS SUMMARY | 2024-11-21 11:29 | XMS_ITS | Clinical Summary ---
Author Organization [employer] Address [address] [facility] [address] [place] [address] Care Team Providers Care Chocolate Molder Name Role Phone Unavailable Primary Care Provider Unavailabl e Allergies Active Allergy Reactions Criticality Noted Date Comments Ibuprofen Nausea Medium 08/31/2024 Meperidine High 06/17/2013 paralysis Medications gabapentin (Neurontin) 400 MG capsule Take 400 mg by mouth 3 times daily. 3 Active Ventolin HFA 108 (90 Base) MCG/ACT inhaler 2 puffs every 4 (four) hours if needed. 3 Active albuterol 108 (90 Base) MCG/ACT inhaler Inhale 2 puffs every 4 (four) hours if needed. Active hydroCHLOROthiazid e (HYDRODiuril) 25 MG tablet Take 1 tablet by mouth in the morning. Active naproxen (Naprosyn) 500 MG tablet Take 500 mg by mouth with breakfast and with evening meal. 3 Active Nystatin powder Acti ve omeprazole (PriLOSEC) [address] capsule 3 Active ondansetron ODT (Zofran-ODT) 4 MG disintegrating tablet DISSOLVE 1 TABLET ON THE TONGUE TWICE DAILY NEEDED FOR NAUSEA OR VOMITING 3 Active sucralfate (Carafate) 1 g tablet TAKE 1 TABLET BY MOUTH THREE TIMES DAILY 1 HOUR BEFORE MEALS AND AT BEDTIME ON AN EMPTY STOMACH 3 Active polyethylene glycol (GaviLyte-G) 236 g solution 3 Active buPROPion XL (Wellbutrin XL) 150 MG 24 hr tablet Take 150 mg by mouth in the morning. Active DULoxetine (Cymbalta) [address] capsule Take 30 mg by mouth in the morning. 4 Active lisinopril 20 MG tablet Take 20 mg by mouth 2 times daily. Active metoprolol succinate XL (Toprol-XL) 100 MG 24 hr tablet Take 100 mg by mouth in the morning. 4 Active ursodiol (Actigall) 300 MG capsule Take 600 mg by mouth in the morning. Active beta carotene (vitamin A) 3 MG (30523 UT) capsule Take by mouth in the morning. 4 Active Vitamin A (beta carotene) 3 MG (12625 UT) tablet Take 1 tablet by mouth in the morning. 4 Active acetaminophen (Tylenol) 500 MG tablet Take 1,000 mg by mouth every 8 (eight) hours. 3 Active amoxicillin-clavul anate (Augmentin) 875-125 MG tablet Take 1 tablet by mouth every 12 (twelve) hours. 4 Active Active Problems Problem Noted Date Diagnosed Date Dental calculus 04/26/2024 Encounters Date Type Department Care Team Description 08/31/2024 11:00 AM EST Office Visit [facility] [address] [place] [address] Ronny Virgen from Last 3 Months Social History Tobacco Use Types Packs/Day Years Used Date Smoking Tobacco: Never Passive Smoke Exposure: Never Smokeless Tobacco: Never Tobacco Cessation:Counseling Given: Not Answered Alcohol Use Standard Drinks/Week Comments Never 0 (1 standard drink = 0.6 oz pur e alcohol) Comments Unknown Sex and Gender Information Value Date Recorded Sex Assigned at Female 06/16/2022 10:25 AM EDT Legal Sex Female 10:25 AM EDT Gender Identity Female 06/16/2022 10:25 AM EDT Sexual Orientation Straight 06/16/2022 10 :25 AM EDT Last Filed Vital Signs Vital Sign Reading Time Taken Comments Blood Pressure 135/85 04/26/2024 10:20 AM EDT Pulse 65 04/26/2024 10:20 AM EDT Temperature - - Respiratory Rate - - Oxygen Saturation - - Inhaled Oxygen Concentration - - Weight - - Height - - Body Mass Index - - Plan of Treatment Health Maintenance Due Date Last Done Comments CT Colonography 1974 Colonoscopy 1974 Colorectal Cancer Screening 1974 Depression Screening 1974 FIT DNA/Cologuard 1974 FIT 1974 FOBT 1974 HIV Screening 1974 Lipid Panel 1974 SDOH Screening 1974 Sigmoidoscopy 1974 Alcohol/Substance Use Screening 1986 Family Planning (PISQ) 1989 Hepatitis C Screening 1992 Hepatitis B Vaccines (1 of 3 - 19+ 3-dose series) 1993 Pneumococcal Vaccine: 50+ Years (1 of 2 - PCV) 1993 Pap Smear 1995 Cervical Cancer Screening 2004 HPV/Cotest 2004 Dental X-Ray: Bitewings 11/02/2013 11/01/2012 Mammogram 2014 Dental Oral Exam 10/05/2022 04/03/2022, 02/2021, 10/07/2019, Additional history exists COVID-19 Vaccine ( season) 2024 08/06/2022, 2021, 11/06/2020 Zoster Vaccines (1 of 2) 2024 Dental Prophylaxis 10/25/2024 04/26/2024, 0 11/02/2023, 02/25/2023, Additional history exists Dental X-Ray: Full Mouth 04/04/2025 04/03/2022, 10/15 Tobacco Screening 08/31/2025 08/31/2024 DTaP/Tdap/Td Vaccines (2 - Td or Tdap) 02/10/2033 02/10/2023, 07/04/2013, 07/04/2013 RSV Patients and Patients Aged 60 years or older (1 - 1-dose 75+ series) 2049 Influenza Vaccine Completed 05/10/2024, , 04/18/2017, Additional history exists HIB Vaccines Aged Out No longer eligi [...] patient's age to complete this topic Meningococcal Vaccine Aged Out No rocio louisa eligible based on patient's age to complete this topic RSV under 20 months Aged Out No longe r eligible based on patient's age to complete this topic Rotavirus Vaccines Aged Out No longer eligible based on patient's age to complete this topic Procedures Procedure Name Priority Date/Time Associated Diagnosis Comments DENTURE ADJUSTMENT Routine 08/31/2024 11 :00 AM EST PROPHYLAXIS - ADULT Routine 04/26/2024 1 0:30 AM EDT PANORAMIC RADIOGRAPHIC IMAGE Routine 04/03/2022 12:00 AM EDT PERIODIC ORAL EVALUATION - ESTABLISHED PATIENT Routine 04/03/2022 12:00 AM EDT INTRAORAL - COMPLETE SERIES OF RADIOGRAPHIC IMAGES Routine 11/01/2012 12:00 AM EDT from Last 3 Months or Most Recently Relevant to Health Maintenance Insurance [facility] MEDICAID STAND ADULT
== END 2024-11-21 09:52 | disposition home or self-care (01) ==
LOC: HO.MAMMO 09:51
PROVIDERS: PCP Internal Medicine; Visit Provider Internal Medicine
DX: Z12.31 Encounter for screening mammogram for malignant neoplasm of breast (principal)
CPT/HCPCS: 77063; 77067

== ENCOUNTER → 2024-11-21 10:00 | Outpatient (BNV) | payer OTHER, SELFPAY | PROVIDERS: PCP Internal Medicine; Visit Provider Internal Medicine | DX: Z12.31 Encounter for screening mammogram for malignant neoplasm of breast (principal) | CPT/HCPCS: 77063; 77067 ==